=== PATIENT | male | born 1995 | race Caucasian/White ===

== ENCOUNTER 2022-03-01 08:29 | Emergency (ER) | payer MEDICAID, SELFPAY ==
[2022-03-01 08:29] VITALS: BP 113/78; PULSE 84; RESP 14; TEMP 36.8; O2SAT 97; BMI 22.3
--- NOTE | 2022-03-01 09:22 | EX.ED.GUMALE ---
HPI History of Present Illness Chief Complaint: Male Pain/Injury Informant: patient Pain Onset: Days Context: Gradual Onset Timing: Continuous Current Severity: Mild Maximum Severity: Mild Appearance Lesion(s): No Genital Edema: No Related History Sexually: Active Unprotected Sex: Yes STD: Yes Epididymitis: No Bladder/Kidney Infection: No Enlarged Prostate: No Prostate Infection: No Prostate Cancer: No Narrative Narrative: 26-year-old male no seen past medical history. States he is never had an STD before. He has had girlfriend for last 2 years states he has not had sex anyone else. He developed a discharge. Reportedly his girlfriend is positive for both gonorrhea and chlamydia and has not been treated. Prior similar symptoms: No Recent Illness/Hospitalization: No PFSH PFSH Medical History no medical history no medical history Home Medications No Known/Unobtainable [No Known Home Medications] 11/12/15 [History Last Taken Unknown] Allergy/AdvReac Type Severity Reaction Status Date / Time No Known Allergies Allergy Verified 03/01/22 08:29 Surgical History History of appendectomy Social History Smoking Status: Current every day smoker tobacco type: cigarettes ROS ROS ED ROS Narrative Penile discharge and discomfort. Review of Systems ROS Unobtainable: Denies due to encephalopathy Eyes Eyes: Denies change in vision ENT ENT ED: Denies ear pain Cardiovascular Cardiovascular: Denies chest pain Respiratory/Chest Respiratory/Chest: Denies dyspnea Gastrointestinal Gastrointestinal: Denies abdominal pain, diarrhea, nausea or vomiting Genitourinary Genitourinary ED: Reports dysuria Musculoskeletal Musculoskeletal: Denies myalgias Integumentary Denies rash Neurologic Neurologic: Denies headache(s) Psychiatric Psychiatric: Denies depression Endocrine Endocrinology: Denies polyuria Hematologic/Lymphatic Hematologic/Lymphatic: Denies easy bruising Allergic/Immunologic Allergic/Immunologic ED: Denies urticaria EXAM Physical Exam Narrative Exam Narrative: 26-year-old male no acute distress vital signs stable afebrile. Exam normal except pain on exam he does have a off-white charles discharge. There is otherwise no swelling or tenderness. No lymphadenopathy. No ulcers. Consistent with an STD. Const Vital Signs: 03/01/22 08:29 Temperature 98.2 F Temperature Source Temporal Pulse Rate 84 Respiratory Rate 14 Blood Pressure 113/78 Blood Pressure Mean 89 Pulse Ox 97 Oxygen Delivery Method Room Air Positive well nourished and well developed; Negative for obese, cachectic, contractures or unkempt General Appearance ED: well developed and NAD; Negative for unkempt, cachectic, contractures or pallor Nutritional Appearance: Negative for cachectic or obese HEENT Reports moist mucous membranes normocephalic and atraumatic; Negative for trauma or tenderness Eyes PERRL and EOMs intact bilaterally General Eye ED: Negative for pale conjunctiva or scleral icterus Neck no lymphadenopathy, supple and no JVD General: Negative for tenderness Resp normal respiratory effort and clear to auscultation bilaterally Auscultation: Negative for rales, rhonchi or wheezes Cardio regular rate, regular rhythm, S1 normal heart sound, S2 normal heart sound and no murmurs GI non-tender, non-distended and no masses Auscultation: normoactive bowel sounds; Negative for hyperactive bowel sounds or hypoactive bowel sounds Palpation: soft; Negative for hepatomegaly Rectal Exam: Negative for tenderness Negative for no CVA tenderness Penis: normal penis, circumcised and discharge; Negative for uncircumcised, condyloma, corporal disruption, ecchymosis, edematous, erythema, mass, nodule, papules, pustules, vesicles, paraphimosis, phimosis, peyronies plaques, polyp(s), swelling, ulceration, lesions, scarring or thrombosed vein Meatus: meatal discharge Scrotum: testes descended bilaterally Testes: testicular lie normal Extremity normal to inspection General Extremety ED: Negative for edema or tenderness General Extremity: Negative for edema Neuro oriented x3 and moves all extremities Sensorium / Orientation: alert, oriented to person, oriented to place and oriented to time; Negative for orientation impaired, confused, lethargic or stuporous Psych mental status grossly normal Appearance: Negative for unkempt Mood & Affect: Negative for depressed or tearful Skin General Skin Exam: Negative for jaundice or pallor Lesions: no lesions Rashes: no rashes and No rashes noted MDM MDM MDM Narrative Medical decision making narrative: 26-year-old male sexually active girlfriend positive for GC and chlamydia. He has penile discharge. He will be treated for both gonorrhea and chlamydia with a gram of p.o. Zithromax and IM injection of ceftriaxone. He was instructed not to have any sex for the next 2 weeks. Warning any and all sexual partners to be evaluated. Discharge Plan Triage Chief Complaint: Male Pain/Injury ED Provider: Mesfin Beltran Dx/Rx/DC Orders Clinical Impression: STD (male) Instructions: ED STI Male Treated Prescriptions: No Action No Known Home Medications RF: 0 Primary Care Provider: Care Physician,No Primary Referrals: Bonnie Ruvalcaba [NON-STAFF] - As Needed Care Physician,No Primary [Primary Care Provider] - Activity Restrictions/Additional Instructions: Follow-up if the discharge does not improve in the next 10 days. Always use condoms. Bhupendra all sexual partners to be evaluated. Disposition Disposition: Home, Self Care
[2022-03-01] MEDS: Azithromycin 250 MG Tablet 1000 MG PO (09:38)
[2022-03-01] MEDS: Ceftriaxone 500 MG Vial 250 MG IM (09:38)
== END 2022-03-01 09:44 | disposition home or self-care (01) ==
LOC: ED 09:44
PROVIDERS: Emergency Provider Emergency Medicine; Visit Provider Emergency Medicine
DX: A64 Unspecified sexually transmitted disease (principal); F17.210 Nicotine dependence, cigarettes, uncomplicated
CPT/HCPCS: 96372; 99283

== ENCOUNTER 2022-03-16 14:48 | Emergency (ER) | payer MEDICAID, SELFPAY ==
[2022-03-16 14:49] VITALS: BP 124/83; PULSE 92; RESP 16; TEMP 36.8; O2SAT 98; BMI 22.7
--- NOTE | 2022-03-16 15:15 | ED.VIS.DENTA ---
HPI History of Present Illness Chief Complaint: Dental Narrative Narrative: 26-year-old male presenting with dental pain. He states it started yesterday. Its in the right upper maxillary teeth posteriorly. Patient denies any drainage. No trouble swallowing or breathing. No fever or chills. Patient denies any dental trauma. He states that he is currently try to get his dentist set up because he has just come back to the area. PFSH PFSH Home Medications amoxicillin-pot clavulanate 1 tab PO BID #20 tab 03/16/22 [Rx Last Taken Unknown] naproxen [Naprosyn] 500 mg PO BID PRN #20 tab 03/16/22 [Rx Last Taken Unknown] Allergy/AdvReac Type Severity Reaction Status Date / Time No Known Allergies Allergy Verified 03/16/22 14:50 Surgical History History of appendectomy Social History Smoking Status: Current every day smoker tobacco type: cigarettes ROS ROS ED Constitutional Constitutional ED: Denies chills, fever(s) or sweats Eyes Eyes: Denies blurry vision or change in vision ENT ENT ED: Reports other Details: Dental pain ; Denies ear pain or sore throat Cardiovascular Cardiovascular: Denies chest pain, palpitations or racing heartbeat Respiratory/Chest Respiratory/Chest: Denies cough, dyspnea or sputum Gastrointestinal Gastrointestinal: Denies abdominal pain, constipation, diarrhea, nausea or vomiting Genitourinary Genitourinary ED: Denies dysuria, hematuria or urinary frequency Musculoskeletal Musculoskeletal: Denies arthralgias, myalgias or neck pain Integumentary Denies abscess, Abrasions or rash Neurologic Neurologic: Denies headache(s), paresthesias or weakness Psychiatric Psychiatric: Denies anxiety, depression, suicidal ideation or suicidal thoughts Endocrine Endocrinology: Denies polydipsia or polyuria EXAM Physical Exam Const Vital Signs: 03/16/22 14:49 Temperature 98.2 F Temperature Source Temporal Pulse Rate 92 Respiratory Rate 16 Blood Pressure 124/83 H Blood Pressure Mean 96 Pulse Ox 98 Oxygen Delivery Method Room Air Positive well nourished General Appearance ED: NAD HEENT HEENT Narrative: Percussion tenderness to tooth #1. No significant gingival swelling. No drainage. Oropharynx patent without stridor. No sublingual edema. No submandibular fullness. Minimal facial swelling adjacent to this area. Negative for trauma Eyes PERRL Neck no lymphadenopathy and supple Cardio regular rate and regular rhythm Extremity normal to inspection Neuro oriented x3 and CN's II-XII intact bilaterally Sensorium / Orientation: alert Psych mental status grossly normal Skin no rashes or lesions noted MDM MDM MDM Narrative Medical decision making narrative: Patient with dental infection likely dental abscess. Patient was given first dose of Augmentin in the ER with Naprosyn. He will be given prescription for this. He is given dental professional for follow-up. Patient given return precautions. Impression: 1. Dental abscess Lab Data Attestation: I reviewed the patient's lab results. Discharge Plan Triage Chief Complaint: Dental ED Provider: Tad Mendez Dx/Rx/DC Orders Instructions: ED Dental Pain, ED Dental Cavity Prescriptions: New amoxicillin-pot clavulanate 875-125 mg tablet 1 tab PO BID Qty: 20 RF: 0 naproxen [Naprosyn] 500 mg tablet 500 mg PO BID PRN (Reason: pain) Qty: 20 RF: 0 Primary Care Provider: Care Physician,No Primary Referrals: Care Physician,No Primary [Primary Care Provider] - Disposition Disposition: Home, Self Care
[2022-03-16] MEDS: Naproxen 500 MG Tablet PO (15:22)
[2022-03-16] MEDS: Amox/Clavulanate 875 MG Tablet PO (15:22)
== END 2022-03-16 15:23 | disposition home or self-care (01) ==
PROVIDERS: Emergency Provider Student in an Organized Health Care Education/Training Program; Visit Provider Student in an Organized Health Care Education/Training Program
DX: K04.7 Periapical abscess without sinus (principal); F17.210 Nicotine dependence, cigarettes, uncomplicated
CPT/HCPCS: 99283

== ENCOUNTER 2022-05-08 16:02 | Emergency (ER) | payer MEDICAID, SELFPAY ==
[2022-05-08 16:03] VITALS: RESP 16; TEMP 36.6; O2SAT 100; BMI 24.3
[2022-05-08] MEDS: Orphenadrine 100 MG Tablet PO (16:46)
--- NOTE | 2022-05-08 16:47 | CM.ED ---
Social Work Note Reason for Referral: No PCP SW reviewed chart, No PCP listed for pt. SW also [facility] that [facility] [place] SW in to speak with pt. Pt confirms he has no PCP. SW provided pt with PCP list/Healthcare Provider Directory. SW also provided pt with Where To Go and When To Go pamphlet. Chantal Marie [employer]IST, [employer] LEADER
--- NOTE | 2022-05-08 16:49 | RAD_ITS ---
INDICATION: neck pain EXAMINATION/TECHNIQUE: X-RAY - XR Spine Cervical 4 or 5 Views COMPARISON: None. FINDINGS: VERTEBRAE: Preserved vertebral body height. No fracture. No spondylolisthesis. There is mild straightening of cervical lordosis which can be positional versus sequelae of muscular spasm. No underlying fracture noted. Odontoid process is intact. Normal alignment of the craniocervical junction. Normal appearance the prevertebral soft tissue planes. No significant facet arthropathy. DISCS: Disc spaces are maintained. NECK SOFT TISSUES: No prevertebral soft tissue widening. LUNG APICES: Clear. RAD/Cerv Spine 4 or 5 Views IMPRESSION: 1. No evidence of acute fracture or spondylolisthesis. 2. Mild straightening of cervical lordosis which can be due to muscular spasm versus positioning. Electronically Signed: Jameel Valentin MD at 18:36 EDT ,
--- NOTE | 2022-05-08 18:23 | EX.ED.GENINJ ---
HPI History of Present Illness Chief Complaint: Other, Pain/Inj Narrative Narrative: 26-year-old male presenting with left-sided neck and trapezius pain radiating to the left shoulder since Thursday. He states he was lifting some heavy boxes when this occurs. He denies any direct trauma. The pain has been progressive. At times he feels like it might radiate to the lateral aspect of his elbow. There is no radiation into the forearm or down into the hand. There is no radiation medially. He has not noticed any weakness in the left arm. He states when he turns his head all the way to the right he feels a pulling in the left trapezius. He has been taking Motrin for this. Its not helping. PFSH [facility] Home Medications NK 05/08/22 [History Last Taken Unknown] Allergy/AdvReac Type Severity Reaction Status Date / Time No Known Allergies Allergy Verified 05/08/22 16:05 Surgical History History of appendectomy Social History Smoking Status: Current every day smoker tobacco type: cigarettes ROS ROS ED Constitutional Constitutional ED: Denies chills, fever(s) or sweats Eyes Eyes: Denies blurry vision or change in vision ENT ENT ED: Denies ear pain or sore throat Cardiovascular Cardiovascular: Denies chest pain, palpitations or racing heartbeat Respiratory/Chest Respiratory/Chest: Denies cough, dyspnea or sputum Gastrointestinal Gastrointestinal: Denies abdominal pain, constipation, diarrhea, nausea or vomiting Genitourinary Genitourinary ED: Denies dysuria, hematuria or urinary frequency Musculoskeletal Musculoskeletal: Reports neck pain and other Details: Pain in the left trapezius ; Denies arthralgias or myalgias Integumentary Denies abscess, Abrasions or rash Neurologic Neurologic: Denies headache(s) or weakness Psychiatric Psychiatric: Denies anxiety, depression, suicidal ideation or suicidal thoughts Endocrine Endocrinology: Denies polydipsia or polyuria EXAM Physical Exam Const Vital Signs: 05/08/22 16:03 05/08/22 16:10 Temperature 97.8 F Temperature Source Temporal Respiratory Rate 16 Respiratory Effort Normal Non-Labored Respiratory Pattern Normal Pulse Ox 100 Oxygen Delivery Method Room Air Positive well nourished General Appearance ED: NAD HEENT atraumatic Eyes PERRL and EOMs intact bilaterally Chest Wall inspection of chest normal and palpation of chest normal Resp normal respiratory effort and clear to auscultation bilaterally Cardio regular rhythm Rate: regular rate Back/Spine Cervical Spine: cervical ROM normal, normal cervical lordosis, Negative for step off deformity, paracervical muscle tenderness Paracervical Muscle Tenderness Details: left, paracervical muscle spasm Laterality Details: left and trapevius muscle tenderness Trapezius Muscle Tenderness Details: left Thoracic Spine / Upper Back: normal to inspection Neuro oriented x3, CN's II-XII intact bilaterally, moves all extremities, no focal motor deficits and no sensory deficits noted [place] Coma Scale: document GCS findings Sensorium / Orientation: alert, oriented to person, oriented to place and oriented to time Motor Exam: strength 5/5 throughout Psych mental status grossly normal Skin no rashes or lesions noted MDM MDM MDM Narrative Medical decision making narrative: Patient presenting with left cervical paraspinal muscular tenderness. Seems to be worse when he turns his head to the right. He has pain is mostly in the medial trapezius and the left paraspinal musculature. No midline spinal tenderness, deformity, step-off. Patient maintains full range of motion of the left shoulder. The left upper extremity and hand are neurovascular intact throughout. Brisk cap refill to all 5 fingers. Radial pulse 2+ on the left. Patient given Norflex as he had already taken ibuprofen. I obtained images of the cervical spine and on my interpretation there is no acute fracture, subluxation, bony deformity. The radiologist agree. I suspect the patient has a cervical strain and may be a mild cervical radiculopathy. He is counseled on stretching exercises, alternating ice and heat. He states he does not have a primary care provider and he will be given 1 to follow-up with. Impression: 1. Cervical strain Lab Data Attestation: I reviewed the patient's lab results. Discharge Plan Triage Chief Complaint: Other, Pain/Inj ED Provider: Tad Mendez Dx/Rx/DC Orders Prescriptions: No Action NK Primary Care Provider: Care Physician,No Primary Referrals: Care Physician,No Primary [Primary Care Provider] -
[2022-05-08 18:51] VITALS: PULSE 69; RESP 15; O2SAT 99
== END 2022-05-08 18:51 | disposition home or self-care (01) ==
PROVIDERS: Emergency Provider Student in an Organized Health Care Education/Training Program; Visit Provider Student in an Organized Health Care Education/Training Program
DX: S16.1XXA Strain of muscle, fascia and tendon at neck level, initial encounter (principal); F17.210 Nicotine dependence, cigarettes, uncomplicated; X50.0XXA Overexertion from strenuous movement or load, initial encounter
CPT/HCPCS: 72050; 99283

== ENCOUNTER 2023-03-16 19:45 | Emergency (ER) | payer SELFPAY ==
[2023-03-16 19:46] VITALS: BP 129/91; PULSE 51; RESP 16; TEMP 35.9; O2SAT 100; BMI 24.8
[2023-03-16 20:32] VITALS: BP 124/77; PULSE 62; RESP 15; O2SAT 98
[2023-03-16] MEDS: Penicillin Vk 250 MG Tablet 500 MG PO (20:32)
[2023-03-16] MEDS: Naproxen 250 MG Tablet 500 MG PO (20:32)
--- NOTE | 2023-03-16 22:11 | ED.VIS.DENTA ---
HPI History of Present Illness Chief Complaint: Dental Informant: patient Onset/Context/Timing Onset: Today Context: Sudden Onset Timing: Continuous Quality: Sharp Location: Right upper teeth Worsened by: Nothing Relieved by: - (Cold water) Associated Symptoms Assocated Symptom - Dental: face swelling; Negative for fever, jaw swelling, cold sensitivity or hot sensitivity Narrative Narrative: Patient presents with right facial and upper dental pain that became worse today. Patient states it began when he woke up this morning. Patient states it has been constant all day. Patient describes his pain as sharp. Patient states it is better with drinking cold water. Patient states nothing makes it worse. Patient admits to some mild facial swelling. Patient denies any fevers or chills. Patient denies any hot or cold sensitivity. PFSH PFSH no medical history Home Medications naproxen 500 mg tablet (Naprosyn) 500 mg PO BID PRN pain #20 tabs 03/16/23 [Rx Last Taken Unknown] penicillin V potassium 500 mg tablet 500 mg PO 4X/DAY #40 tabs 03/16/23 [Rx Last Taken Unknown] Allergy/AdvReac Type Severity Reaction Status Date / Time No Known Allergies Allergy Verified 03/16/23 19:46 Surgical History History of appendectomy Social History Smoking Status: Current every day smoker tobacco type: cigarettes ROS ROS ED Constitutional Constitutional ED: Denies chills or fever(s) Eyes Eyes: Denies blurry vision or change in vision ENT ENT ED: Denies rhinorrhea or sore throat Cardiovascular Cardiovascular: Denies chest pain or palpitations Respiratory/Chest Respiratory/Chest: Denies cough or dyspnea Gastrointestinal Gastrointestinal: Denies nausea or vomiting Genitourinary Genitourinary ED: Denies dysuria or hematuria Musculoskeletal Musculoskeletal: Denies back pain or neck pain Integumentary Denies abscess or rash Neurologic Neurologic: Reports headache(s); Denies weakness Allergic/Immunologic Allergic/Immunologic ED: Denies mouth swelling or urticaria EXAM Physical Exam Const Vital Signs: 03/16/23 19:46 03/16/23 20:32 Temperature 96.6 F L Temperature Source Temporal Pulse Rate 51 L 62 Respiratory Rate 16 15 Blood Pressure 129/91 H 124/77 H Blood Pressure Mean 103 Pulse Ox 100 98 Oxygen Delivery Method Room Air Positive well nourished and well developed General Appearance ED: well developed and NAD HEENT HEENT Narrative: There are multiple dental caries over the right upper molars and incisors. There is some mild gingival edema over the right upper molar area. There is no abscess noted. There is no fluctuance. There is no discharge or drainage. Oral mucosa is pink and moist. Oropharynx is clear. Airway is patent. There is no sublingual edema or evidence of Willam's angina. Mouth ED: Yes oral and palatal mucosa normal, Yes lips normal and Yes tongue normal Mouth: oral and palatal mucosa normal, lips normal and tongue normal Teeth and Gingiva: caries and gingiva abnormal Positive for gingival edema Neck supple and no JVD General: Negative for anterior neck swelling, tenderness or submandibular swelling Lymph Lymphatic: no lymphadenopathy noted Neuro oriented x3, CN's II-XII intact bilaterally, moves all extremities, no focal motor deficits and no sensory deficits noted Sensorium / Orientation: alert Motor Exam: strength 5/5 throughout Psych mental status grossly normal MDM MDM MDM Narrative Medical decision making narrative: Patient was advised that this is most likely infected dental caries. Patient was given a dose of Pen-Vee K and Naprosyn here. Patient was given prescriptions for the same. Patient was instructed to follow-up with a dentist in 5 to 7 days. Patient was instructed to return if worse in any way. Patient understood and was agreeable with plan. All questions were answered. Discharge Plan Triage Chief Complaint: Dental ED Provider: Adolfo Euceda Dx/Rx/DC Orders Clinical Impression: Infected dental caries Instructions: ED Dental Pain, ED Dental Cavity Prescriptions: New penicillin V potassium 500 mg tablet 500 mg PO 4X/DAY Qty: 40 0RF naproxen [Naprosyn] 500 mg tablet 500 mg PO BID PRN (Reason: pain) Qty: 20 0RF Primary Care Provider: Care Physician,No Primary Referrals: Bonnie Ruvalcaba [Non-Staff] - 5-7 Days Care Physician,No Primary [Primary Care Provider] - Disposition Disposition: Home, Self Care Discharge Date/Time: 03/16/23 20:33
== END 2023-03-16 20:33 | disposition home or self-care (01) ==
LOC: ED 20:27
PROVIDERS: Emergency Provider Emergency Medicine; Referring Provider Emergency Medicine; Visit Provider Emergency Medicine
DX: K02.9 Dental caries, unspecified (principal); F17.210 Nicotine dependence, cigarettes, uncomplicated; Z90.49 Acquired absence of other specified parts of digestive tract
CPT/HCPCS: 99283

== ENCOUNTER 2024-03-31 16:22 | Emergency (ER) | payer SELFPAY ==
[2024-03-31 16:23] VITALS: BP 124/79; PULSE 54; RESP 16; TEMP 36.7; O2SAT 98; BMI 23.6
[2024-03-31] MEDS: Penicillin Vk 250 MG Tablet 500 MG PO (16:45)
--- NOTE | 2024-03-31 16:49 | EDS_ITS ---
<Statement entered by Yvrose Sanders MD - 03/31/24 20:10> I have personally performed a face to face assessment of the patient and have reviewed the KENIA Note. Patient presents secondary to dental pain. He reports history of some broken and decayed teeth. He has had increased pain over the past 3 to 4 days. He went to [facility] today but they were not able to see him until next week. He came here just to get antibiotics. Patient sitting upright in bed no acute distress. Head and neck examination was no facial edema or erythema. Intraoral examination reveals multiple decayed teeth. Along one of the molars on the left maxillary surface there are some surrounding gum edema. There is no posterior pharyngeal erythema or drainage. No Willam's angina. No significant cervical lymphadenopathy. Patient was treated with a course of antibiotics. He will follow-up with the dentist next week as scheduled. Return instructions provided. HPI History of Present Illness Chief Complaint: Dental Narrative Narrative: Patient is a 28-year-old male with no significant medical history who presents to the emergency department with left upper jaw pain it has been ongoing for the last 3 to 4 days. Patient does have poor dental health, he states he deals with this often. Patient went to the clinic today however they cannot get him in for 1 week. He is here for antibiotics. He denies any other injury. Denies any fever chills nausea or vomiting. [facility] Home Medications ?Medication ?Instructions ?Recorded ?Last Taken ?Type naproxen 500 mg tablet (Naprosyn) 500 mg PO BID PRN pain #20 tabs 03/16/23 Unknown Rx penicillin V potassium 500 mg 500 mg PO 4X/DAY #40 tabs 03/16/23 Unknown Rx tablet penicillin V potassium 500 mg 500 mg PO 4X/DAY #40 tabs 03/31/24 Unknown Rx tablet Allergy/AdvReac Type Severity Reaction Status Date / Time No Known Allergies Allergy Verified 03/16/23 19:46 Surgical History History of appendectomy Social History Smoking Status: Current every day smoker tobacco type: cigarettes ROS ROS ED ROS Narrative Constitutional: Negative for fever, chills, weight loss, weakness Eyes: Negative for vision loss, vision change, double vision ENT: Negative for any sore throat, ear pain, congestion. Positive for left upper jaw pain Cardiovascular: Negative for any chest pain, tightness, palpitations Respiratory: Negative for any cough, sputum production, hemoptysis, dyspnea, dyspnea on exertion, orthopnea Gastrointestinal: Negative for any abdominal pain, nausea, vomiting, diarrhea, constipation, blood in stool, blood in vomit : Negative for any urinary frequency, dysuria, retention, blood in urine Muscle skeletal: Negative for any neck pain, back pain Neurological: Negative for any headache, syncope, dizziness Skin: Negative for any rashes, itching, abrasions, lacerations Psychiatric: Negative for any depression, anxiety, stress, suicidal ideation, homicidal ideation Hematologic: Negative for any excessive bruising, easy bleeding EXAM Physical Exam Narrative Exam Narrative: Vital signs reviewed. HEET: Head normocephalic atraumatic, TMs clear bilaterally. Posterior pharynx is clear, moist mucous membranes. Nares clear bilaterally. Patient has poor dentition, he has multiple broken, decayed teeth. Patient to the left upper jaw has no drainable abscess. He does have 2 broken teeth that are causing his issue. Negative for any trismus. Neck: Supple with no lymphadenopathy or tenderness. No signs of meningismus. Cardiac: Regular rate and rhythm no murmurs gallops or rubs, equal peripheral pulses bilaterally. Respiratory: Lungs clear to auscultation bilaterally. No chest tenderness. Abdomen: Soft, nontender, nondistended. No abdominal bruit or pulsatile masses. No hepatosplenomegaly Extremities: No peripheral edema, no signs of gross trauma or deformity. Active full range of motion of all extremities. Neuro: Cranial nerves II through XII intact, no focal neurological deficits. Skin: Clean dry and intact with no rash, purpura, petechiae, vesicles or pustules. Backs/flank: No CVA tenderness, no midline spinal tenderness, no deformity. Psych: Normal mood and affect. No SI, HI or acute psychosis. Const Vital Signs: 03/31/24 16:23 Temperature 98.1 F Temperature Source Temporal Pulse Rate 54 L Respiratory Rate 16 Blood Pressure 124/79 H Blood Pressure Mean 94 Pulse Ox 98 Oxygen Delivery Method Room Air Positive well nourished and well developed General Appearance ED: well developed MDM MDM Treatment and Re-Evaluation :: Differential diagnosis includes however is not limited to: Ludwigs angina, dental caries, tooth fracture, irreversible pulpitis Patient appears to be in no obvious distress vital signs are stable. Patient appears nontoxic, presenting to the emergency department complaints of left upper jaw pain, left tooth pain. Most of the tooth pain is around the left upper molar. Patient has also multiple dental caries, multiple fractured teeth. Patient will be placed on Pen-Vee K, he will use [id number] anti- inflammatories, Tylenol. He will follow-up with the clinic this upcoming week. Stable for discharge. Discharge Plan Triage Chief Complaint: Dental ED Midlevel Provider: Yonatan Blas ED Provider: Yvrose Sanders Dx/Rx/DC Orders Clinical Impression: Dental caries Instructions: Understanding Tooth Decay, ED Dental Cavity Prescriptions: New penicillin V potassium 500 mg tablet 500 mg PO 4X/DAY Qty: 40 0RF No Action penicillin V potassium 500 mg tablet 500 mg PO 4X/DAY Qty: 40 0RF naproxen [Naprosyn] 500 mg tablet 500 mg PO BID PRN (Reason: pain) Qty: 20 0RF Primary Care Provider: Care Physician,No Primary Referrals: Care Physician,No Primary [Primary Care Provider] - Print Language: Moldovan Disposition Disposition: Home, Self Care
== END 2024-03-31 17:12 | disposition home or self-care (01) ==
PROVIDERS: Emergency Provider Emergency Medicine; Visit Provider Emergency Medicine
DX: K02.9 Dental caries, unspecified (principal); F17.210 Nicotine dependence, cigarettes, uncomplicated
CPT/HCPCS: 99282